=== PATIENT | male | born 1975 | race Caucasian/White ===

== ENCOUNTER 2017-09-14 15:48 | Outpatient (CLI) | payer BC ==
[2017-09-14 16:57] LABS: Basophils # (A) 0.1 k/uL (0-0.2); Basophils % (A) 1 %; Eosinophils # (A) 0.6 k/uL (0-0.7); Eosinophils % (A) 10 %; HCT 44.4 % (39.0-53.0); HGB 15.1 gm/dL (13.0-17.5); Lymphocytes # (A) 1.8 k/uL (1.0-4.8); Lymphocytes % (A) 30 %; MCV 82.3 fL (80.0-100.0); Mean Platelet Volume 7.4; Monocytes # (A) 0.4 k/uL (0-1.0); Monocytes % (A) 6 %; Neutrophils # (A) 3.1 k/uL (1.3-7.7); Neutrophils % (A) 52 %; Platelet Count 287 k/uL (150-450); RBC 5.39 m/uL (4.30-5.90); RDW 13.5 % (11.5-15.5); WBC 6.1 k/uL (3.8-10.6)
== END 2017-09-14 16:35 | disposition home or self-care (01) ==
LOC: PROCWHC3 15:48 → PEDOP 16:35
PROVIDERS: ATTEND Internal Medicine
DX: J11.1 Influenza due to unidentified influenza virus with other respiratory manifestations (principal); J32.9 Chronic sinusitis, unspecified
CPT/HCPCS: 85025; 87502; 99212

== ENCOUNTER → 2018-06-11 | Outpatient (CLI) | payer BC ==
[2018-06-11 09:03] LABS: Basophils % (A) 0 %; Eosinophils # (A) 0.8 k/uL (0-0.7); Eosinophils % (A) 15 %; HCT 45.7 % (39.0-53.0); HGB 15.3 gm/dL (13.0-17.5); Lymphocytes # (A) 1.6 k/uL (1.0-4.8); Lymphocytes % (A) 32 %; MCH 27.9 pg (25.0-35.0); MCHC 33.6 g/dL (31.0-37.0); Mean Platelet Volume 6.9; Monocytes # (A) 0.3 k/uL (0-1.0); Monocytes % (A) 7 %; Neutrophils # (A) 2.2 k/uL (1.3-7.7); Neutrophils % (A) 44 %; Platelet Count 318 k/uL (150-450); RDW 13.7 % (11.5-15.5)
[2018-06-11 12:43] LABS: Erythrocyte Sedimentation Rate 30 mm/hr (0-15)
[2018-06-11 17:14] LABS: Vitamin D 25 Hydroxy 17.7 ng/mL (30.0-100.0)
[2018-06-11 17:22] LABS: Albumin 4.5 g/dL (3.80-4.90); Albumin/Globulin Ratio 1.67 (1.20-2.10); Anion Gap 7.8 mmol/L (4.00-12.00); C Reactive Protein 0.5 mg/dL (0.0-0.8); Calcium 9.3 mg/dL (8.7-10.3); Carbon Dioxide 24.2 mmol/L (21.6-31.8); Globulin 2.7 g/dL (2.1-3.7); LDL Cholesterol,Calculated 81.2 mg/dL (0.0-131.0); Potassium 4.3 mmol/L (3.5-5.5); Total Bilirubin 0.6 mg/dL (0.3-1.2); Total Protein 7.2 g/dL (6.2-8.2); VLDL Calculation 16.8 mg/dL (5.00-40.00)
[2018-06-11 20:57] LABS: Hemoglobin A1C 5.1 % (4.0-6.0)
== END ==
LOC: LABWHC1 08:24
PROVIDERS: ATTEND Internal Medicine
DX: E11.9 Type 2 diabetes mellitus without complications (principal); E78.5 Hyperlipidemia, unspecified; I10 Essential (primary) hypertension; E55.9 Vitamin D deficiency, unspecified; N40.0 Benign prostatic hyperplasia without lower urinary tract symptoms; E16.2 Hypoglycemia, unspecified; E29.1 Testicular hypofunction
CPT/HCPCS: 36415; 80053; 80061; 82306; 82550; 83036; 84146; 84153; 84402; 84403; 84443; 85025; 85652; 86140